=== PATIENT | male | born 1955 | race Caucasian/White ===

== ENCOUNTER 2021-08-23 05:39 | Outpatient (CLI) | payer MEDICARE ==
[~2021-08-23] VITALS: Ht 175.3 cm; Wt 136.4 kg
[2021-08-23] MEDS ORDERED: ENAL20TA16 PO (14:53)
[2021-08-23] MEDS ORDERED: SOTA120T PO (14:53)
[2021-08-23] MEDS ORDERED: ASPI-999 PO (14:53)
[2021-08-23] MEDS ORDERED: MULT-1104 PO (14:53)
[2021-08-23] MEDS ORDERED: OMEP20TA33 PO (14:53)
[2021-08-23] MEDS ORDERED: SIMV10TA26 PO (14:53)
== END 2021-08-23 14:57 | disposition home or self-care (01) ==
LOC: PREOP 05:39
PROVIDERS: ATTEND Surgery
DX: Z01.818 Encounter for other preprocedural examination (principal)

== ENCOUNTER 2021-08-25 08:55 | Day surgery (SDC) | payer MEDICARE ==
[~2021-08-25] VITALS: Ht 175.3 cm; Wt 136.4 kg
[~2021-08-25 08:55] MED LIST: ASPI-999 PO; ENAL20TA16 PO; MULT-1104 PO; OMEP20TA33 PO; SIMV10TA26 PO; SOTA120T PO
--- OUTSIDE RECORDS SUMMARY | 2021-08-25 08:59 | XMS REPORT | Clinical Summary ---
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 Active sotaloL (BETAPACE) 120 MG Take 60 mg by 0 04/25 tablet mouth. 7 Active simvastatin (ZOCOR) 10 MG Take 10 mg by 0 08/25 0 tablet mouth daily. 9 Active pantoprazole (PROTONIX) Take 40 mg by 0 40 MG tablet mouth daily. 0 Active aspirin 81 MG EC tablet Take 81 mg by 0 mouth. 8 Active gabapentin (NEURONTIN) Take 300 mg 0 300 MG capsule by mouth 3 (three) times a day. 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 This is a 64-year-old left-handed man w ho presents with an incidentally found large left frontal arachnoid cyst . The patient's symptoms of BPPV have resolved, and he does not have any symptoms referable to the cyst. On exam the patient is neurologically inta ct. We reviewed the patient's imaging together in clinic today. Ther e is a very large left frontal arachnoid cyst with signs of longstandi ng compression of the left frontal lobe and scalloping/remodeling of the o verlying calvarium. We discussed the etiology and natural history of lencho chnoid cysts which are congenital lesions that, in almost all cases, do n ot require treatment in adults. There are no concerning features associ ated with this cyst on his MRI, therefore I do not think that any follo w-up imaging is indicated. The patient and his asked numerous que stions. They expressed an understanding of our discussion and agr eement with the plan for follow-up as needed. Social History Date Tobacco Use Types Packs/Day Years Used Never Smoker Smokeless Tobacco: Never Used Comments Alcohol Use Standard Drinks/Week Never 0 (1 standard drink = 0.6 o z pure alcohol) Alcohol Habits Answer Date Recorded How often do you have a drink containing alcohol? Never 11/26/2019 How many drinks containing alcohol do you have on No t asked a typical day when you are drinking? How often do you have six or more drinks on one Not asked occasion? 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 Blood Pressure 77 11/26/2019 12:48 PM SCOOTER MECHANIC Pulse - - Temperature - - Respiratory Rate - - Oxygen Saturation - - Inhaled Oxygen Concentration 136.7 kg (301 lb 6.4 oz) 11/26/2019 12:48 PM SCOOTER MECHANIC Weight - - Height - - Body Mass Index Plan of Treatment Health Maintenance Due Date Last Done Comments Hepatitis C Screen 1955 Td/Tdap# 1955 COVID-19 Vaccine (1) 1965 Colorectal Screening via 2003 Colonoscopy Zoster Vaccine# (1 of 2) 2003 Advance Care Plan 2018 Conversation Needed # Fall Risk Assessment # 2018 Pneumococcal Vaccine: 65+ 2018 Years (1 of 1 - PPSV23) Influenza Vaccine (#1) 2021 10/09/2012 Results Not on filefrom Last 3 Months Insurance Type Payer Benefit Subscriber ID Effective Phone Address Plan / Dates Group [facility] OUT OF [id number] 2019-P [address] PREF resent [id number] [place] [address] Advance Directives For more information, please contact: [phone] Patient Capital Equipment Specialist Explanation Type Date Recorded Health Care Directive Care Teams Start Date End Date Steel Shot Header Operator Relationship Specialty 11/18/19 Bertha Archibald MD PCP - General Family [address] [place] [address]
[2021-08-25 09:20] VITALS: BP 146/105
[2021-08-25] MEDS ORDERED: ceFAZolin 2 GM IV Premixed 50 ML ONE (09:36)
[2021-08-25] MEDS ORDERED: PROPOFOL INJECTION 50 ML IV ONE (09:47)
[2021-08-25] MEDS ORDERED: LIDOCAINE/EPI 1%-1:100,000 (XYLOCAINE) 20ML ONE (09:47)
[2021-08-25] MEDS ORDERED: MIDAZOLAM 2 MG/2 ML (VERSED) VIAL ONE (09:48)
[2021-08-25] MEDS ORDERED: fentaNYL INJ 100 MCG/2 ML AMP ONE (09:48)
[2021-08-25] MEDS ORDERED: LACTATED RINGERS 1,000 ML IV PRN (10:00)
[2021-08-25] MEDS ORDERED: ceFAZolin 2 GM IV Premixed 50 ML IV ONE (10:00)
--- NOTE | 2021-08-25 10:31 | Progress Note-Pre Operative ---
Pre-Operative Progress Note H&P Reviewed The H&P was reviewed, patient examined and no changes noted. Time Seen by Provider: 10:02 Date H&P Reviewed: Aug 25, 2021 Time H&P Reviewed: 10:02 Pre-Operative Diagnosis: Melanoma of scalp, site marked PB GALVEZ DO Aug 25, 2021 10:31
--- NOTE | 2021-08-25 10:59 | Progress Note-Post Operative ---
Post-Operative Progess Note Surgeon (s)/Log Buyer (s) Surgeon PB GALVEZ DO Log Buyer: MAICOL Matson Pre-Operative Diagnosis Melanoma of scalp, site marked Post-Operative Diagnosis same pending path Procedure & Operative Findings Date of Procedure 08/25/21 Procedure Performed/Findings Wide Excision of melanoma 6x2 cm Anesthesia Type IV sedation by BAG MACHINE ADJUSTER Estimated Blood Loss Estimated blood loss (mL): scant Specimens/Packing Specimens Removed 6x2 portion of scalp PB GALVEZ DO Aug 25, 2021 10:59
[2021-08-25] MEDS ORDERED: ACHD5005 PO (11:00)
--- NOTE | 2021-08-25 11:02 | Discharge Inst-Surgical ---
Discharge Inst-Surgical Depart Medication/Instructions New, Converted or Re-Newed RX: Transmitted to Pharmacy Patient Instructions Follow up Appt: Make appointment for 1 week. [phone] Instructions: May shower in 24 hours, no tub bath or soaking. Use incentive spirometer at home as directed. No Smoking Skin/Wound Care: May remove bandages in am. You need to leave the sutures in place and come in to office to have them removed. Symptoms to Report: Appetite Changes, Extremity Discoloration, Numbness/Tingling, Swelling Increased, Bleeding Excessive, Eyesight Changes, Pain Increased, Urine Color Change, Constipation(Persistent), Fever over 101 degree F, Pain/Pressure in chest, Urinating Difficulty, Cough Up/Vomit Blood, Heart Beat Irreg/Pounding, Pain/Pressure in jaw, Cramps in feet or legs, Lightheadedness, Pain/Pressure in shoulder, Diarrhea(Persistent), Memory Changes Suddenly, Questions/Concerns, Weight gain consecutive days, Dizziness/Fainting, Nausea/Vomiting, Shortness of Breath, Weight gain over 2 pounds If questions or concerns contact your physician Or seek help at emergency department. Activity Activity as Tolerated: Yes Activity Instructions: Avoid Stress to Incision Driving Instructions: No Driving/Refer to Dr. Fields Discharge Diet: No Restrictions Diet After 24 Hours: Clear Liquid if Nauseous If Any Problems/Questions/Issu: Contact Your Physician, Go to Emergency Room Skin/Wound Care Infection Signs and Symptoms: Increased Redness, Foul Odor of Wound, Increased Drainage, Skin Itchy or Has a Rash, Increased Swelling, Temperature Above 101 F Bathing Instructions: Shower Stitches/Mak/Dermabond Dis: Care of Stitches PB GALVEZ DO Aug 25, 2021 11:02
[2021-08-25 11:11] VITALS: BP 89/55
[2021-08-25] MEDS ORDERED: ONDANSETRON 4 MG/2 ML (SDV) Z0FRAN IVP PRN (11:15)
[2021-08-25] MEDS ORDERED: morphine INJ 10 MG/ML 1ML (SYR OR VIAL) IVP ONE (11:15)
[2021-08-25] MEDS ORDERED: MEPERIDINE (DEMEROL) INJ 50 MG/ML IVP ONE (11:15)
[2021-08-25 11:20] VITALS: BP 90/59
[2021-08-25 11:30] VITALS: BP_SYST 97; BP_SYST 99; BP_DIAS 65; BP_DIAS 73
[2021-08-25 12:00] VITALS: BP 121/66
[2021-08-25 12:30] VITALS: BP 121/66
--- NOTE | 2021-08-25 12:48 | Anesthesia-General Post-Op ---
MAC Patient Condition Mental Status/LOC: Same as Preop Cardiovascular: Satisfactory Nausea/Vomiting: Absent Respiratory: Satisfactory Pain: Controlled Complications: Absent Post Op Complications Complications None Follow Up Care/Instructions Patient Instructions None needed. Anesthesiology Discharge Order Discharge Order Patient is doing well, no complaints, stable vital signs, no apparent adverse anesthesia problems. No complications reported per nursing. MONY SOLITARIO CRNA Aug 25, 2021 12:48
--- NOTE | 2021-08-27 17:21 | OPERATIVE REPORT ---
DATE OF SERVICE: 08/25/2021 PREOPERATIVE DIAGNOSIS: Melanoma of the scalp. POSTOPERATIVE DIAGNOSIS: Melanoma of the scalp, pending pathology. PROCEDURE PERFORMED: Wide local excision of melanoma of the scalp measured about 6 cm long x about 2 cm wide. SURGEON: Jeferson Spence DO. ANESTHESIA: General endotracheal tube. BLOOD LOSS: Less than 10 mL. FLUIDS: Per anesthesia. POSTOPERATIVE CONDITION: Stable. INDICATION FOR PROCEDURE: The patient is a 66-year-old male, who had a mass on the top of the scalp more posteriorly located, was biopsied and found to be melanoma with not clear margins, of 0.3 mm depth, and needed a wide local excision. FINDINGS: The patient had a wide local excision, went at least 0.5 cm outside of each margin and then made a 2 cm wide x about 6 cm long incision. PROCEDURE NOTE: After informed consent was obtained, the patient was brought to the operating room, placed on the operating table in a supine position, sterilely prepped and draped in a normal fashion, measured about 0.5 cm away from the previous edges and in order to make this close together nicely, had to make it 6 cm long x 2 cm wide, marked this with a marking pen, had already been previously marked on the top of his head, timeout agreed and infiltrated this area with local, then made an incision with #15 blade, carried down through the skin into subcutaneous tissue, then deepened down to the subcutaneous tissue with Bovie electrocautery, going around and under this mass and then marking it, short stitch towards the forehead and long stitch lateral and passed this off the table, to send to pathology. Then had to undermine the scalp to be able to bring the incision together, used 2-0 nylon three vertical mattress sutures and four simple sutures of the 2-0 Prolene. Area was then cleaned and dried, pressure dressing placed. The patient tolerated the procedure and he was transferred to recovery room in a stable condition. Sponge, instrument, and needle count correct at the end of the case. Job ID: [id number] DocumentID: [id number] Dictated Date: 08/27/2021 10:59:34 Acid Cutter Date: 08/27/2021 17:20:13 Dictated By: JEFERSON SPENCE DO
== END 2021-08-25 12:39 ==
LOC: SDC 08:55
PROVIDERS: ATTEND Surgery
DX: C43.4 Malignant melanoma of scalp and neck (principal); I10 Essential (primary) hypertension; I49.9 Cardiac arrhythmia, unspecified; E78.5 Hyperlipidemia, unspecified; K21.9 Gastro-esophageal reflux disease without esophagitis; E78.00 Pure hypercholesterolemia, unspecified; E66.01 Morbid (severe) obesity due to excess calories; Z87.891 Personal history of nicotine dependence; Z68.41 Body mass index [BMI] 40.0-44.9, adult; Z79.899 Other long term (current) drug therapy; Z79.82 Long term (current) use of aspirin; Z90.49 Acquired absence of other specified parts of digestive tract
CPT/HCPCS: 87081; 88305; 88344